=== PATIENT | female | born 1995 | race Caucasian/White ===

== ENCOUNTER 2019-04-17 11:59 | Outpatient (CLI) | payer MEDICAID ==
[2019-04-17] MEDS ORDERED: PRENAVITE1 TAB PO (12:33)
[2019-04-17 13:10] LABS: APPEARANCE CLEAR (CLEAR); COLOR YELLOW (YELLOW)
[2019-04-17 13:11] LABS: BILIRUBIN NEGATIVE (NEGATIVE); GLUCOSE NEGATIVE (NEGATIVE); KETONE NEGATIVE (NEGATIVE); NITRITE NEGATIVE (NEGATIVE); PROTEIN NEGATIVE (NEGATIVE); UROBILINOGEN NORMAL (NORMAL)
== END 2019-04-17 13:40 ==
LOC: D.LDO 11:59
PROVIDERS: ATTEND Student in an Organized Health Care Education/Training Program
DX: O26.893 Other specified pregnancy related conditions, third trimester (principal); Z3A.29 29 weeks gestation of pregnancy

== ENCOUNTER 2019-06-27 00:02 | Inpatient (IN) | payer MEDICAID ==
[~2019-06-27] VITALS: Ht 165.1 cm; Wt 94.8 kg
[~2019-06-27 00:02] MED LIST: PRENAVITE1 TAB PO
[2019-06-27 00:23] VITALS: BP 122/76; Ht 165.1 cm; Wt 94.8 kg
[2019-06-27 01:30] LABS: HEMATOCRIT 31.2 % (36.0-48.0); HEMOGLOBIN 10.4 g/dL (12-16); MCH 28.8 pg (26.0-34.0); MCHC 33.3 g/dL (31.0-37.0); MCV 86.4 fL (80.0-100.0); MEAN PLATELET VOLUME 12.1 fL (7.4-10.4); RBC 3.61 10x6/uL (4.00-5.40); RDW 13.9 % (11.5-14.5); WBC 11.3 10x3/uL (4.8-10.8)
[2019-06-27 01:40] LABS: UDS - AMPHET NEGATIVE QUAL (NEGATIVE); UDS - BARB NEGATIVE QUAL (NEGATIVE); UDS - BENZO NEGATIVE QUAL (NEGATIVE); UDS - COCAINE NEGATIVE QUAL (NEGATIVE); UDS - OPIATE NEGATIVE QUAL (NEGATIVE); UDS - PCP NEGATIVE QUAL (NEGATIVE); UDS - THC POSITIVE QUAL (NEGATIVE)
[2019-06-27 01:43] LABS: APPEARANCE CLEAR (CLEAR); BILIRUBIN NEGATIVE (NEGATIVE); COLOR YELLOW (YELLOW); EPITHELIAL CELLS 0-5 /hpf (0-5); GLUCOSE NEGATIVE (NEGATIVE); KETONE NEGATIVE (NEGATIVE); NITRITE NEGATIVE (NEGATIVE); PROTEIN NEGATIVE (NEGATIVE); RED CELLS - URINE 0-5 /hpf (0-5); UROBILINOGEN NORMAL (NORMAL)
[2019-06-27 01:44] LABS: BACTERIA FEW /hpf (NEGATIVE)
[2019-06-27 07:55] VITALS: BP 122/58
--- NOTE | 2019-06-27 07:55 | NUR ---
RECEIVED PT SITTING UP IN BED. VISITS WITH FAMILY. VSS. HRRR WITHOUT AUDIBLE MURMUR. BBS CLEAR. BS X 4. ABDOMEN SOFT/NON-DISTENDED. FUNDUS FIRM AT U/2. RUBRA LOCHIA SMALL AMT. NO CLOTS EXPRESSED. PERINEUM WITHOUT EDEMA. ICE PACK TO PERINEUM. PERIPADS CHANGED. NEG HOMANS' SIGN. PPP. MILD, NON-PITTING EDEMA NOTED TO BLE. SL TO RIGHT HAND. SITE CLEAR. PT DENIES PAIN AT THIS TIME. SR UP X2. CALL LIGHT IN REACH. SPRITE PROVIDED TO PT PER PT REQUEST.
--- NOTE | 2019-06-27 08:27 | NUR ---
PT VOIDS LARGE AMT OF BLOOD-TINGED URINE. PERICARE DONE WITH BETADINE AND WATER IN PERIBOTTLE. PANTIES AND PAD ON. PT SITS UP IN WHEELCHAIR. C/O PAIN TO PERINEUM OF "7" ON 0-10 PAIN SCALE. NORCO 5/325 GIVEN PO ORDERED. PT INSTRUCTED ON MED. VERBALIZES UNDERSTANDING.
--- NOTE | 2019-06-27 08:39 | NUR ---
PT TRANSFERED VIA WHEELCHAIR TO ROOM 1257. PT TO BED. ORIENTED TO ROOM, BED, AND CALL LIGHT. SR UP X 2. CALL LIGHT IN REACH.
--- NOTE | 2019-06-27 10:15 | NUR ---
PT IN BATHROOM. VOIDS AT THIS TIME. STATES HAS SHOWERED AND FEELS BETTER. DENIES NEEDS OR C/O.
--- NOTE | 2019-06-27 11:30 | NUR ---
PT SITTING UP IN BED. CARING FOR INFANT. DENIES C/O OR NEEDS.
[2019-06-27 13:16] LABS: BASOPHILS 0.1 % (0-2); EOSINOPHILS 0.3 % (0-7); HEMATOCRIT 31.3 % (36.0-48.0); HEMOGLOBIN 10.2 g/dL (12-16); IMMATURE GRANULOCYTES 0.4 % (0-5); LYMPHOCYTES 18.7 % (15-50); MCH 28.5 pg (26.0-34.0); MCHC 32.6 g/dL (31.0-37.0); MCV 87.4 fL (80.0-100.0); MEAN PLATELET VOLUME 11.5 fL (7.4-10.4); MONOCYTES 5.8 % (2-11); NEUTROPHILS 74.7 % (40-80); PLATELET COUNT 192 10x3/uL (130-400); RBC 3.58 10x6/uL (4.00-5.40); WBC 13.9 10x3/uL (4.8-10.8)
--- NOTE | 2019-06-27 15:01 | NUR ---
NORCO 5/325 GIVEN PO ORDERED. PT INSTRUCTED ON MED. VERBALIZES UNDERSTANDING.
--- NOTE | 2019-06-27 15:45 | NUR ---
PT SITTING UP IN BED. STATES PAIN RELIEVED BY PAIN MED. DENIES NEEDS OR C/O.
--- NOTE | 2019-06-27 17:00 | NUR ---
PT SITTING UP IN BED. CARING FOR INFANT. DENIES NEEDS OR C/O.
[2019-06-27 18:15] VITALS: BP 103/75
--- NOTE | 2019-06-27 18:15 | NUR ---
PT SITTING UP IN BED. WATCHES TV. DENIES C/O PAIN. FUNDUS FIRM AT U/2. RUBRA LOCHIA SMALL AMT. DENIES HEAVY BLEEDING OR PASSING CLOTS. DENIES NEEDS.
--- NOTE | 2019-06-27 19:05 | NUR ---
REPORT GIVEN TO ON-COMING SHIFT.
--- NOTE | 2019-06-27 19:28 | NUR ---
PT IS SITTING UP IN BED CUDDLING HER BABY. SHE STATES SHE ONLY HAS LITTLE PAIN AT THIS TIME. HEART SOUNDS ARE WNL, LUNGS ARE CLEAR, AND BOWEL SOUNDS ARE HEARD IN ALL QUAD. HER FUNDUS IS FIRM. SHE STATES SHE GETS UP TO CLEAN HERSELF ABOUT ONCE AN HOUR BECAUSE SHE DIDN'T LIKE TO FEEL UNCLEAN. SHE STATES HER BLEEDING IS SMALL TO MOD. PT IS UP AD WILMA IN HER ROOM. PT HAS NO WANTS OR NEEDS AT THIS TIME.
[2019-06-27 19:38] VITALS: BP 104/78
--- NOTE | 2019-06-27 20:22 | NUR ---
PT CALLED TO ASK FOR PAIN MEDS. SHE STATES SHE IS CRAMPING AT THIS TIME. SHE STATES SHE PASSD A STRINGY LOOKING CLOT. SHE WAS MEDICATED WITH NARCO 5 PO.
--- NOTE | 2019-06-27 20:54 | NUR ---
PT LAYING QUIETLY IN ROOM TRYING TO NAP. SHE STATES HER PAIN RATING NOW IS ABOUT A 3. CRAMPING MUCH BETTER. INVANZ IV WAS HUNG AT THIS TIME PER DR. MCWILLIAMS. NO C/O OR NEEDS AT THIS TIME.
--- NOTE | 2019-06-27 21:40 | NUR ---
ANTIBIOTICS COMPLETED, IV FLUSHED WITH 10ML NS AND SALINE LOCKED AT THIS TIME. PT DENIES NEEDS. BED REMAINS LOCKED IN LOW POSITION, SIDE RAILS UPX2, CALL ESPINAL AND TRAY TABLE IN REACH. WILL CONTINUE TO MONITOR
--- NOTE | 2019-06-27 22:10 | NUR ---
PT IS RESTING QUIETLY AT THIS TIME. NO C/O AND NO NEEDS.
--- NOTE | 2019-06-27 23:20 | NUR ---
RESTING. NO NEW C/0.
--- NOTE | 2019-06-28 01:01 | NUR ---
PT REQUESTED PAIN MEDS. SHE IS CRAMPY AND ACHY. SHE STATES HER PAIN LEVEL IS 7. NARCO 5 GIVEN PO. SHE STATES SHE IS GOING TO TRY TO GO TO SLEEP AT THIS TIME.
--- NOTE | 2019-06-28 01:40 | NUR ---
PT IS RESTING NOW. STATES PAIN IS NOW A 5.
--- NOTE | 2019-06-28 04:08 | NUR ---
PT IS RESTING WITH HER EYES CLOSED. RESPIRATIONS ARE REGULAR AND EVEN. SLEEPING ON HER RIGHT SIDE.
--- NOTE | 2019-06-28 06:05 | NUR ---
PT IS RESTING WITH HER EYES CLOSED. NO C/0 AT THIS TIME.
--- NOTE | 2019-06-28 06:37 | NUR ---
PT CALLED OUT WITH CALL ESPINAL, PADS AND PANTIES PROVIDED PER REQUEST. PT ALSO REQUESTING PAIN MEDICATION.
--- NOTE | 2019-06-28 06:44 | NUR ---
PT C/O PAIN. SHE RATES IT A 6. SHE WAS GIVEN NARCO 5 MG PO. SHE IS AWAKE AND ALERT PLAYING WITH HER BABY. SHE IS UP AD WILMA IN HER ROOM.
[2019-06-28 08:00] VITALS: BP 113/68
--- NOTE | 2019-06-28 08:00 | NUR ---
assessment done. verbal responses appro to questions. up and about in room as desired. in room. dr ferguson in room talking with pt.
[2019-06-28 08:10] LABS: RAPID PLASMA REAGIN Non Reactive (Non Reactive)
--- NOTE | 2019-06-28 10:00 | NUR ---
resting in bed- denies needs.
[2019-06-28 12:06] VITALS: BP 110/71
--- NOTE | 2019-06-28 12:07 | NUR ---
CO PAIN -CRAMPING AND REQUEWSTING PAIN - RATES PAIN A 6 ON SCALE OF 0-10. MED GIVEN REQUESTED.
--- NOTE | 2019-06-28 14:30 | NUR ---
states that iv is irritating- iv removed with cath tip intact- pressure held and bandaide applied. up and about in room. denies needs.
--- NOTE | 2019-06-28 19:11 | NUR ---
PT RESTING IN BED HOLDING . BEDSIDE REPORT RECEIVED FROM OFFGOING DAY SHIFT NURSE.
[2019-06-28 19:30] VITALS: BP 112/59
--- NOTE | 2019-06-28 19:30 | NUR ---
PT RESTING IN BED WITH INFANT. ASSESSMENT COMPLETE PER FLOWSHEET. VSS. PT RATES HER PAIN AT 2/10. BS CLEAR IN ALL LOBES. ABDOMEN SOFT AND NON-DISTENDED. ACTIVE BS X4 QUADRANTS. PT REPORTS PASSING FLATUS. SHE DENIES HAVING A BM. FUNDUS FIRM AND 1 BELOW UMBILICUS. PT REPORTS CHANGING HER PERIPAD APPROX. EVERY HOUR AND THE PAD BEING ABOUT HALF FULL. PT DENIES HAVING ANY SATURATED PERIPADS WITH LOCHIA. TRACE EDEMA NOTED TO BLE. POC DISCUSSED. QUESTIONS ANSWERED. WATER PITCHER FILLED. PT INSTRUCTED TO NOTIFY NURSE WITH ANY PROBLEMS, NEEDS, OR CONCERNS. VERBALIZED UNDERSTANDING. BED IN LOW POSITION. SRUP X2. CALL LIGHT AND TELEPHONE WITHIN PTS REACH.
--- NOTE | 2019-06-28 20:21 | NUR ---
NORCO 5 X1 TABLET GIVEN FOR C/O PERINEAL PAIN. PT INSTRUCTED TO NOTIFY NURSE IF MEDICATION NOT EFFECTIVE OT WITH ANY OTHER PROBLEMS, NEEDS, OR CONCERNS. VERBALIZED UNDERSTANDING.
--- NOTE | 2019-06-28 20:51 | NUR ---
PT. SITTING UP IN BED LOOKING AT PHONE. LYING ON BED WITH PT. STATES PAIN IS MUCH RELIEVED AND RATES A 4 OF 10 ON PAIN SCALE. DENIES ANY FURTHER NEEDS.
--- NOTE | 2019-06-28 21:43 | NUR ---
PT SITTING UP IN BED WITH . RATES PAIN AT 2/10. DENIES ANY NEEDS OR COMPLAINTS AT THIS TIME. INSTRUCTED PT TO NOTIFY NURSE WITH ANY PROBLEMS, NEEDS, OR CONCERNS. VERBALIZED UNDERSTANDING. BED IN LOW POSITIO. SRUP X2. CALL LIGHT AND TELEPHONE WITHIN PTS REACH.
[2019-06-29 00:17] VITALS: BP 103/67
--- NOTE | 2019-06-29 00:17 | NUR ---
PT SITTING UP IN BED FEEDING BABY. VS OBTAINED. NORCO X1 TABLET GIVEN FOR C/O PERINEAL PAIN. PT ASKING IF LAXATIVE AVAILABLE. INFORMED PT THAT THERE IS NOT ONE ON HER EMAR, BUT THAT I CAN CALL THE DOCTOR TO OBTAINED AN ORDER. PT DECLINED AT THIS TIME. SHE STATED THAT SHE CAN WAIT UNTIL THE MORNING. I ALSO OFFERED HER A PRUNE JUICE WITH LEMON WIYOT DRINK AND SHE DECLINED. SHE STATED "I PROBABLY WON'T DRINK IT." AGAIN, I OFFERED TO CALL THE DR FOR AN ORDER AND SHE STATED THAT SHE WILL WAIT UNTIL THE MORNING. NO OTHER REQUEST MADE. INSTRUCTED PT TO NOTIFY NURSE WITH ANY OTHER PROBLEMS, QUESTIONS, OR CONCERNS. VERBALIZED UNDERSTANDING. BED IN LOW POSITION. SR UP X2. CALL LIGHT AND TELEPHONE WITHIN PTS REACH.
--- NOTE | 2019-06-29 01:07 | NUR ---
PT RESTING IN BED WITH LIGHTS DIMMED. IN OPEN CRIB AT BEDSIDE. PT REPORTS THAT HER PAIN IS NOW AT A 5 AFTER TAKING PAIN MEDICATION. PT DENIES ANY NEEDS. INSTRUCTED TO NOTIFY NURSE WITH ANY PROBLEMS, NEEDS, OR CONCERNS. VERBALIZED UNDERSTANDING.
--- NOTE | 2019-06-29 02:05 | NUR ---
PT RESTING IN BED WITH EYES CLOSED. INFANT IN OPEN CRIB AT BEDSIDE. NO DISTRESS NOTED. BED IN LOW POSITION. SR UP X2. CALL LIGHT AND TELEPHONE WITHIN PTS REACH.
--- NOTE | 2019-06-29 03:19 | NUR ---
CLEAR PLASTIC BOTTLES PROVIDED PER PT REQUEST. PT DENIES ANY COMPLAINTS OR OTHER NEEDS AT THIS TIME. INSTRUCTED PT TO NOTIFY NURSE WITH ANY PROBLEMS, NEEDS, OR CONCERNS. VERBALIZED UNDERSTANDING. BED IN LOW POSITION. SR UP X2. CALL LIGHT AND TELEPHONE WITHIN PTS REACH.
--- NOTE | 2019-06-29 04:07 | NUR ---
PT SITTING UP IN BED HOLDING . DENIES ANY COMPLAINTS OR NEEDS. INSTRUCTED PT TO NOTIFY NURSE WITH ANY PROBLEMS, NEEDS, OR CONCERNS. VERBALIZED UNDERSTANDING. BED IN LOW POSITION. SR UP X2. CALL LIGHT AND TELEPHONE WITHIN PTS REACH.
--- NOTE | 2019-06-29 07:10 | NUR ---
DR. CORRALES ON UNIT, VERBAL DISCHARGE ORDER RECEIVED FROM
[2019-06-29 07:25] VITALS: BP 110/72
--- NOTE | 2019-06-29 07:25 | NUR ---
AM ASSESSMENT COMPLETED. SEE FLOWSHEET. PT DENIES HEAVY BLEEDING OR PASSING CLOTS. REGULAR BREAKFAST TRAY SERVED BY DIETARY. MUG OF ICE WATER SERVED. PT DENIES ALL OTHER NEEDS AT THIS TIME. DISCHARGE PLANNING DISCUSSED WITH PT. PT AGREES. SIG OTHER AT BEDSIDE. SRUP X2, CALL LIGHT AND PHONE WITHIN REACH.
[2019-06-29] MEDS ORDERED: IBUPROFEN600 MG PO (08:31)
[2019-06-29] MEDS ORDERED: HYDROCODON-ACE1 EAC7 PO (08:31)
--- NOTE | 2019-06-29 10:20 | NUR ---
DISCHARGE INSTRUCTIONS EXPLAINED TO PT, WITH COPIES PROVIDED OF D/C, PP, AND EMERGENCY INSTR SHEETS. PRESCRIPTIONS FOR NORCO AND MOTRIN GIVEN TO PT. PERIPANTIES PROVIDED UPON REQUEST. PT DENIES ALL OTHER NEEDS AT THIS TIME. SEE EMAR FOR ALL MEDS ADM BY THIS RN. SRUP X2, CALL LIGHT AND PHONE WITHIN REACH. AWAITING INFANT'S DISCHARGE.
[2019-07-01 08:08] LABS: UDSC - AMPHET Negative ng/mL (Cutoff=1000); UDSC - BARB Negative ng/mL (Cutoff=300); UDSC - BENZO Negative ng/mL (Cutoff=300); UDSC - COC Negative ng/mL (Cutoff=300); UDSC - METH Negative ng/mL (Cutoff=300); UDSC - OPIATES Negative ng/mL (Cutoff=300); UDSC - PCP Negative ng/mL (Cutoff=25); UDSC - PROPOXY Negative ng/mL (Cutoff=300); UDSC - THC Positive (Cutoff=50)
== END 2019-06-29 11:15 | disposition home or self-care (01) | DRG 807 ==
LOC: D.LDO 00:02 → D.LD 00:22
PROVIDERS: ADMIT Obstetrics & Gynecology; ATTEND Obstetrics & Gynecology
PROC: 10E0XZZ Delivery of Products of Conception, External Approach (ICD-10-PCS; principal; 2019-06-27)
DX: O99.824 Streptococcus B carrier state complicating childbirth (principal); Z37.0 Single live birth; Z3A.38 38 weeks gestation of pregnancy; O69.81X0 Labor and delivery complicated by cord around neck, without compression, not applicable or unspecified

== ENCOUNTER 2020-12-15 14:42 | Emergency (ER) | payer MEDICAID ==
[~2020-12-15] VITALS: Ht 165.1 cm; Wt 100.0 kg
[~2020-12-15 14:42] MED LIST changes: +HYDROCODON-ACE1 EAC7 PO; +IBUPROFEN600 MG PO
[2020-12-15 14:52] VITALS: BP 126/59; Ht 165.1 cm; Wt 100.0 kg
[2020-12-15 15:12] LABS: BASOPHILS 0.1 % (0-2); EOSINOPHILS 0.5 % (0-7); HEMATOCRIT 34.6 % (36.0-48.0); HEMOGLOBIN 10.7 g/dL (12-16); IMMATURE GRANULOCYTES 0.2 % (0-5); LYMPHOCYTE ABS# 2.23 10x3/uL (1.18-3.74); LYMPHOCYTES 22.2 % (15-50); MCH 21.2 pg (26.0-34.0); MCHC 30.9 g/dL (31.0-37.0); MCV 68.7 fL (80.0-100.0); MONOCYTES 6.4 % (2-11); NEUTROPHIL ABS# 7.08 10x3/uL (1.56-6.13); NEUTROPHILS 70.6 % (40-80); RBC 5.04 10x6/uL (4.00-5.40); RDW 19.7 % (11.5-14.5)
[2020-12-15 15:20] LABS: PLATELET COUNT 264 10x3/uL (130-400)
[2020-12-15 15:21] LABS: CALC OSMOLALITY 271 mosm/kg (275-300); CALCIUM 9.1 mg/dL (8.5-10.1); CARBON DIOXIDE 23.1 mmol/L (21.0-32.0); CHLORIDE - SERUM 102 mmol/L (98-107); CREATININE - SERUM 0.6 mg/dL (0.6-1.3); GLUCOSE 95 mg/dL (74-106); POTASSIUM - SERUM 3.4 mmol/L (3.5-5.1); SODIUM 137 mmol/L (136-145); UREA NITROGEN 7 mg/dL (7-18); eGFR NON AFRICAN AMERICAN > 90 mL/min (90-120)
[2020-12-15 15:30] LABS: ALBUMIN 3.4 g/dL (3.4-5.0); ALKALINE PHOSPHATASE 49 U/L (30-120); ALT (SGPT) 20 U/L (10-68); AMYLASE - SERUM 44 U/L (25-115); BILIRUBIN - TOTAL 0.42 mg/dL (0.2-1.3); LIPASE 54 U/L (73-393); PROTEIN - SERUM 7.4 g/dL (6.4-8.2)
[2020-12-15 15:32] LABS: TROPONIN-I < 0.017 ng/mL (0.000-0.060)
[2020-12-15 16:15] LABS: BILIRUBIN NEGATIVE (NEGATIVE); KETONE MODERATE mg/dL (NEGATIVE); NITRITE NEGATIVE (NEGATIVE); UROBILINOGEN NORMAL mg/dL (< 2)
[2020-12-15 16:18] LABS: BACTERIA MANY HPF (NONE SEEN); SQUAMOUS EPITHELIAL 0-5 HPF (0-4); WHITE CELLS - URINE 0-5 HPF (0-4)
[2020-12-15] MEDS ORDERED: MUCINEX600 MG PO (16:51)
[2020-12-15] MEDS ORDERED: ALBUTEROL SULF8.5 GM INH (16:51)
[2020-12-15] MEDS ORDERED: CEPHALEXIN500 M1 PO (16:51)
== END 2020-12-15 17:22 | disposition home or self-care (01) ==
LOC: D.ER 14:42
PROVIDERS: Family Medicine
DX: O30.001 Twin pregnancy, unspecified number of placenta and unspecified number of amniotic sacs, first trimester (principal); R07.89 Other chest pain; J40 Bronchitis, not specified as acute or chronic; R10.12 Left upper quadrant pain; O23.41 Unspecified infection of urinary tract in pregnancy, first trimester; Z3A.01 Less than 8 weeks gestation of pregnancy